=== PATIENT | male | born 1945 | race Two or more races ===

== ENCOUNTER 2022-07-15 14:27 | Inpatient (IN) | payer OTHER ==
[~2022-07-15] VITALS: Ht 162.6 cm; Wt 59.9 kg
--- NOTE | 2022-07-15 14:45 | NUR ---
PT IS IN ROOM #1A. DR BONE EVALUATED THE PT.
[2022-07-15 14:58] LABS: ABG PCO2 34.9 mmHg (35.0-45.0); ABG PH 7.417 (7.350-7.450); ABG PO2 106.7 mmHg (75.0-100.0); ABG SITE RIGHT RADIAL; ABG TOTAL HEMOGLOBIN 11.9 G/dL (13.5-18.0); COHb 0.4 % (0.5-1.5); MetHb 0.1 % (0.0-1.5); O2Hb 97.7 % (94.0-97.0); VENT MODE Nasal Cannula 2.5L
[2022-07-15 15:01] LABS: HEMATOCRIT 34.5 % (36.7-47.1); MEAN CORPUSCULAR HEMOGLOBIN 27.7 uug (23.8-33.4); MEAN CORPUSCULAR VOLUME 85.9 fL (73.0-96.2); PLATELET COUNT (AUTO) 285 K/uL (152-348)
[2022-07-15 15:14] LABS: *BILIRUBIN,URIN NEGATIVE (NEGATIVE); *CLARITY,URINE CLEAR (CLEAR); *COLOR,URINE YELLOW (YELLOW); *KETONES,URINE NEGATIVE (NEGATIVE); *UROBILINOGEN,URINE 0.2 E.U./dl (NORMAL); LEUKOCYTE ESTERASE ,URINE NEGATIVE (NEGATIVE); NITRITE, URINE NEGATIVE (NEGATIVE)
[2022-07-15 15:21] LABS: *BLOOD, URINE TRACE (NEGATIVE); UGLUCOSE 2+ (NEGATIVE)
[2022-07-15 15:37] LABS: CARBON DIOXIDE 25 mmol/L (21-32); CHLORIDE 102 mmol/L (98-107); CREATININE 1.1 mg/dL (0.6-1.3); POTASSIUM 4.6 mmol/L (3.5-5.1); UREA NITROGEN, BLOOD 15 mg/dL (7-18)
[2022-07-15 15:44] LABS: GLUCOSE 327 mg/dL (74-106)
[2022-07-15] MEDS ORDERED: INSU100V7 SQ (16:03)
--- NOTE | 2022-07-15 16:03 | NUR ---
Pt stated he only uses Lantus for his DM, and his Dr discontinue Humalog. No other medications reported.
[2022-07-15] MEDS ORDERED: INSULIN REGULAR, HUMAN 300 UNIT/3 ML VIAL SQ ONE (16:30)
[2022-07-15] MEDS ORDERED: FUROSEMIDE 40 MG/4 ML VIAL IV ONE (16:30)
--- NOTE | 2022-07-15 18:05 | NUR ---
REPORT WAS GIVEN TO RN TELEMTRY PT WAS TRANSFERED TO ROOM #303.
[2022-07-15 18:35] LABS: WBC,URINE 0-3 /HPF (0-3)
--- NOTE | 2022-07-15 18:35 | NUR ---
77 year old male received to room 303 for hyperglycemia ,pt is [id number].call light with in reach orient the pt to room .md notified for admission
[2022-07-15] MEDS ORDERED: ZOLPIDEM 5 MG TABLET PO PRN (19:00)
[2022-07-15] MEDS ORDERED: MORPHINE SULFATE 2 MG/1 ML DISP.SYRIN IV PRN (19:00)
[2022-07-15] MEDS ORDERED: ONDANSETRON 4 MG/2 ML VIAL IV PRN (19:00)
[2022-07-15] MEDS ORDERED: ACETAMINOPHEN 325 MG TABLET PO PRN (19:00)
[2022-07-15 20:15] VITALS: BP 121/71
[2022-07-15] MEDS ORDERED: INSULIN REGULAR, HUMAN 300 UNITS/3 ML VIAL SQ PRN (20:45)
[2022-07-15] MEDS ORDERED: DEXTROSE 50% 50 ML DISP.SYRIN IV PRN (20:45)
[2022-07-15] MEDS: BLOOD SUGAR DIAGNOSTIC 1 EACH STRIP VI SCH (20:49)
[2022-07-15] MEDS: DOCUSATE SODIUM 100 MG CAPSULE PO SCH (20:59)
[2022-07-15] MEDS: ENOXAPARIN SODIUM 40 MG/0.4 ML DISP.SYRIN SQ SCH (20:59)
[2022-07-15] MEDS: INSULIN GLARGINE,HUM 300 UNITS/3 ML CARTRIDGE SQ SCH (23:34)
[2022-07-16 00:07] VITALS: BP 124/77
[2022-07-16 04:10] VITALS: BP 144/69
--- NOTE | 2022-07-16 06:25 | NUR ---
Patient is AAOX4, no acute distress observed. Morning Blood sugar WNL; patient had a BM the last night. He is compliant with medication. He is ambulatory and selfcare.
[2022-07-16] MEDS: PANTOPRAZOLE SODIUM 40 MG TABLET.DR PO SCH (06:46)
[2022-07-16] MEDS: BLOOD SUGAR DIAGNOSTIC 1 EACH STRIP VI SCH ×4 (07:02→20:16)
[2022-07-16 07:17] LABS: MEAN CORPUSCULAR VOLUME 85.5 fL (73.0-96.2); PLATELET COUNT (AUTO) 324 K/uL (152-348)
[2022-07-16 07:42] LABS: ALANINE AMINOTRANSFERASE 18 U/L (16-63); ALKALINE PHOSPHATASE 139 U/L (50-136); ASPARTATE AMINOTRANSFERASE 18 U/L (15-37); BILIRUBIN,TOTAL 0.4 mg/dL (0.2-1.0); CARBON DIOXIDE 27 mmol/L (21-32); CHLORIDE 101 mmol/L (98-107); CHOLESTEROL 115 mg/dL (<200); CREATININE 1.2 mg/dL (0.6-1.3); GLUCOSE 119 mg/dL (74-106); HDL CHOLESTEROL 61 mg/dL (40-60); MAGNESIUM 1.7 mg/dL (1.8-2.4); PHOSPHOROUS 2.7 mg/dL (2.5-4.9); POTASSIUM 3.4 mmol/L (3.5-5.1); TOTAL PROTEIN, SERUM 8.6 g/dL (6.4-8.2); TRIGLYCERIDES 44 MG/DL (30-150); UREA NITROGEN, BLOOD 15 mg/dL (7-18)
[2022-07-16 07:45] LABS: THYROID STIMULATING HORMONE 6.929 mIU/mL (0.358-3.740)
[2022-07-16 08:53] LABS: IRON, SERUM 50 ug/dL (50-175)
[2022-07-16] MEDS ORDERED: FUROSEMIDE 40 MG/4 ML VIAL IV SCH (09:00)
[2022-07-16] MEDS ORDERED: MAGNESIUM OXIDE 400 MG TABLET PO ONE (10:00)
[2022-07-16] MEDS ORDERED: POTASSIUM CHLORIDE 20 MEQ TAB.PRT.SR PO ONE (10:00)
[2022-07-16 11:34] VITALS: BP 114/61
[2022-07-16] MEDS: INSULIN REGULAR, HUMAN 300 UNIT/3 ML VIAL SQ PRN (13:33)
--- NOTE | 2022-07-16 13:45 | NUR ---
Patient departed the floor after IVs removed and PEG tube flushed. Report given to logistics coordinator and at bedside and informed of transfer. Addendum: 07/16/22 at 1358 by ANTONIO JACOBS RN Charted in error
--- NOTE | 2022-07-16 15:25 | NUR ---
Notified Americo Jose that pt has pulled out his IV and is refusing a new start. Requested a change to PO lasix.
[2022-07-16 16:00] VITALS: BP 111/67
--- NOTE | 2022-07-16 19:30 | NUR ---
Received patient lying in bed. AAOx4. In no acute distress. Denies any pain or SOB. No IV site, aware per day shift RN. Offered to place new IV but patient refusing. NSR on tele with HR of 79/min. Needs assessed and attended to. Safety measure initiated and call light within reached.
[2022-07-16] MEDS: DOCUSATE SODIUM 100 MG CAPSULE PO SCH (20:14)
[2022-07-16] MEDS: INSULIN GLARGINE,HUM 300 UNITS/3 ML CARTRIDGE SQ SCH (20:16)
[2022-07-16] MEDS: ENOXAPARIN SODIUM 40 MG/0.4 ML DISP.SYRIN SQ SCH (20:17)
[2022-07-16 20:18] VITALS: BP 113/70
[2022-07-17 00:17] VITALS: BP 122/74
[2022-07-17] MEDS ORDERED: GUAIFENESIN/DEXTROMETHORPHAN 5 ML UDC PO PRN (00:45)
[2022-07-17 04:10] VITALS: BP 122/78
[2022-07-17] MEDS: PANTOPRAZOLE SODIUM 40 MG TABLET.DR PO SCH (06:23)
[2022-07-17] MEDS: BLOOD SUGAR DIAGNOSTIC 1 EACH STRIP VI SCH ×3 (06:34→16:37)
--- NOTE | 2022-07-17 06:39 | NUR ---
Slept through out the night. No complain of pain or SOB. NSR on tele with Hr of 87/min. Needs attended to and met. Safety measure maintained and call light within reached.
[2022-07-17] MEDS: INSULIN REGULAR, HUMAN 300 UNIT/3 ML VIAL SQ PRN ×2 (07:46→16:42)
[2022-07-17 08:00] VITALS: BP 139/84
--- NOTE | 2022-07-17 08:00 | NUR ---
Received pt. awake. alert and oriented. No IV catheter, removed already. Patient NSR on tele monitor, no complain, no signs of distress. On room air saturating at 98%. Vital signs taken and recorded. Attended
[2022-07-17 08:10] LABS: CARBON DIOXIDE 28 mmol/L (21-32); CHLORIDE 101 mmol/L (98-107); CREATININE 1.3 mg/dL (0.6-1.3); GLUCOSE 209 mg/dL (74-106); MAGNESIUM 1.9 mg/dL (1.8-2.4); POTASSIUM 4.1 mmol/L (3.5-5.1); UREA NITROGEN, BLOOD 22 mg/dL (7-18)
[2022-07-17] MEDS: CARVEDILOL 6.25 MG TABLET PO SCH ×2 (08:35→17:23)
[2022-07-17] MEDS: FUROSEMIDE 40 MG TABLET PO SCH ×2 (08:35→17:23)
[2022-07-17] MEDS ORDERED: LOSARTAN POTASSIUM 25 MG TABLET PO SCH (09:00)
[2022-07-17] MEDS ORDERED: FUROSEMIDE 40 MG TABLET PO SCH (09:00)
[2022-07-17] MEDS ORDERED: ASPIRIN 81 MG TAB.CHEW PO SCH (09:00)
[2022-07-17] MEDS ORDERED: CLOPIDOGREL 75 MG TABLET PO SCH (09:22)
[2022-07-17 11:24] VITALS: BP 122/70
--- NOTE | 2022-07-17 11:30 | NUR ---
Patient has order for discharge, prepared discharge summary. Carried out orders and given instructions to the patient.
[2022-07-17] MEDS ORDERED: CLOP75TA33 PO (11:42)
[2022-07-17] MEDS ORDERED: CARV6.252 PO (11:42)
[2022-07-17] MEDS ORDERED: FURO40TA5 PO (11:42)
[2022-07-17] MEDS ORDERED: LOSA25TA27 PO (11:42)
[2022-07-17] MEDS ORDERED: ATOR40TA PO (11:42)
--- NOTE | 2022-07-17 15:35 | NUR ---
Patient has no IV catheter. Removed tele monitor. Given and instructed discharge summary papers. Signed papers for discharge. Answered all questions and verbalized understanding. Vital signs stable at this time, no complain. Called [facility] for patient's car pick up driver.
--- NOTE | 2022-07-17 16:20 | NUR ---
Given and instructed PCP follow up under Dr. Kandace Burt MD on July 24 at 9am.
[2022-07-17 17:23] VITALS: BP 139/84
--- NOTE | 2022-07-17 17:45 | NUR ---
Patient was picked by ambulance from [facility] ([place] / [phone]). Given and instructed discharge summary 1750- Discharge patient and assisted with wheel chair, stable at the time of discharge
[2022-07-17] MEDS ORDERED: ATORVASTATIN 40 MG TABLET PO SCH (21:00)
== END 2022-07-17 17:50 | DRG 291 ==
LOC: ER 14:27 → TELE3 17:59
PROVIDERS: ADMIT Internal Medicine; ATTEND Nurse Practitioner Acute Care
DX: I11.0 Hypertensive heart disease with heart failure (principal); I50.43 Acute on chronic combined systolic (congestive) and diastolic (congestive) heart failure; D68.59 Other primary thrombophilia; J84.9 Interstitial pulmonary disease, unspecified; E44.0 Moderate protein-calorie malnutrition; I25.10 Atherosclerotic heart disease of native coronary artery without angina pectoris; Z95.5 Presence of coronary angioplasty implant and graft; E11.65 Type 2 diabetes mellitus with hyperglycemia; E11.21 Type 2 diabetes mellitus with diabetic nephropathy; I48.91 Unspecified atrial fibrillation; Z88.6 Allergy status to analgesic agent; Z79.4 Long term (current) use of insulin; Z95.0 Presence of cardiac pacemaker; E87.6 Hypokalemia; E83.42 Hypomagnesemia; E78.5 Hyperlipidemia, unspecified; I42.9 Cardiomyopathy, unspecified; H54.62 Unqualified visual loss, left eye, normal vision right eye; Z68.22 Body mass index [BMI] 22.0-22.9, adult; Z95.1 Presence of aortocoronary bypass graft; E88.09 Other disorders of plasma-protein metabolism, not elsewhere classified; I08.3 Combined rheumatic disorders of mitral, aortic and tricuspid valves; Z20.822 Contact with and (suspected) exposure to COVID-19; D64.9 Anemia, unspecified
CPT/HCPCS: 36415; 36600; 71045; 82803; 83550; 83735; 84100; 84443; 84484; 85025; 85730; 93005; 93307; A4663; G0378; J1650; J1815; J1940